=== PATIENT | male | born 1975 | race Caucasian/White ===

== ENCOUNTER 2016-12-12 11:53 | Emergency (ER) | payer OTHER, BC ==
[~2016-12-12] VITALS: Ht 180.3 cm; Wt 124.5 kg
[~2016-12-12 11:53] MED LIST: C-PHSYP6 PO; OXYC-360 PO; ZITH250T PO
[2016-12-12 12:03] VITALS: BP 140/101; PULSE 96; RESP 18; TEMP 98.3; O2SAT 95
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
[2016-12-12] MEDS ORDERED: NAPROXEN 500 MG TAB PO ONE (12:30)
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
== END 2016-12-12 14:01 | disposition home or self-care (01) ==
LOC: PHEFT 11:53
DX: M25.532 Pain in left wrist (principal); S60.212A Contusion of left wrist, initial encounter; V43.52XA Car driver injured in collision with other type car in traffic accident, initial encounter; Y93.89 Activity, other specified; Y92.410 Unspecified street and highway as the place of occurrence of the external cause; Y99.8 Other external cause status
CPT/HCPCS: 73110; 99283